=== PATIENT | male | born 1965 | race Caucasian/White ===

== ENCOUNTER → 2019-07-24 | Day surgery (SDC) | payer OTHER ==
[2019-07-21 15:04] LABS: BASOPHILS # (AUTO) 0.1 (0.0-0.1); BASOPHILS % 0.9 % (0.0-1.0); EOSINOPHILS # (AUTO) 0.5 (0.0-0.4); EOSINOPHILS % 7.3 % (0.0-6.0); HEMATOCRIT 48.8 % (38.2-49.6); HEMOGLOBIN 17.4 g/dL (14.0-18.0); LYMPHOCYTES # (AUTO) 1.3 (1.0-3.2); LYMPHOCYTES % 20.3 % (18.0-39.1); MEAN CORPUSCULAR HEMOGLOBIN 30.6 pg (28-32); MEAN CORPUSCULAR HGB CONC 35.7 g/dL (31-35); MEAN CORPUSCULAR VOLUME 85.8 fL (81-99); MONOCYTES # (AUTO) 0.6 (0.2-0.8); MONOCYTES % 9.3 % (4.4-11.3); NEUTROPHILS # (AUTO) 3.9 (2.1-6.9); NEUTROPHILS % 61.7 % (38.7-80.0); PLATELET COUNT 153 x10e3/uL (140-360); RED BLOOD COUNT 5.69 x10e6/uL (4.3-5.7); RED CELL DISTRIBUTION WIDTH 13.1 % (11.7-14.4)
[2019-07-21 15:18] LABS: ANION GAP 12.4 mmol/L (8-16); BLOOD UREA NITROGEN 18 mg/dL (7-26); BUN/CREATININE RATIO 15 (6-25); CARBON DIOXIDE 27 mmol/L (22-29); CHLORIDE 104 mmol/L (98-107); CREATININE, SERUM 1.22 mg/dL (0.72-1.25); EST GLOMERULAR FILTRATION RATE > 60 ML/MIN (60-); GLUCOSE 99 mg/dL (74-118); POTASSIUM 3.4 mmol/L (3.5-5.1); SODIUM 140 mmol/L (136-145)
[~2019-07-24] MED LIST: BUPIVACAINE 0.25%/EPI 30ML SDV INJ ONE; DEXAMETHASONE SOD PHOS INJ 4 MG/ML VIAL ONE; DEXILANT60 MG PO; FENTANYL CITRATE/PF 100MCG/2 ML INJ ONE; KETOROLAC TROMETHAMINE 30 MG/ML VIAL ONE; LIDOCAINE HCL 2% LOCAL INJ 5 ML SDV VIAL INJ ONE; MIDAZOLAM HCL 2 MG/2 ML VIAL ONE; MILK THISTLE140 M1 PO; MULTI-VITAMIN1 EACH PO; ONDANSETRON HCL INJ 2MG/ML 2ML 2 MG/ML VIAL ONE; PROPOFOL IV EMULSION 10 MG/ML 20 ML VIAL ONE; SEVOFLURANE INHAL SOLN 250 ML PEN BTL ONE; VIT B COMPLEX PO; VIT E PO
--- NOTE | 2019-07-24 09:26 | Diagnostic Imaging Report ---
EXAMINATION: CHEST 2 VIEWS INDICATION: Pre-operative COMPARISON: None FINDINGS: LINES/TUBES:None LUNGS:The lungs are well-inflated. Mild subsegmental atelectasis at the left lung base. No focal consolidation or pulmonary edema to PLEURA:No pleural effusion or pneumothorax. MEDIASTINUM:The cardiomediastinal silhouette appears normal in size and shape. BONES/SOFT TISSUES:No acute osseous injury. ABDOMEN:No free air under the diaphragm. IMPRESSION: Mild subsegmental atelectasis at the left lung base. No focal pneumonia or pulmonary edema. Signed by: Ildefonso Tolbert MD on 07/24/2019 9:22 AM
[2019-07-24 12:10] VITALS: BP 130/81
--- NOTE | 2019-07-24 17:40 | Operative Report ---
DATE OF PROCEDURE: 07/24/2019 SURGEON: Dudley Stein MD PREOPERATIVE DIAGNOSIS: Incarcerated ventral hernia. POSTOPERATIVE DIAGNOSIS: Incarcerated ventral hernia. OPERATION PERFORMED: Repair of incarcerated ventral hernia with mesh. ANESTHESIA: General. COMPLICATIONS: None. ESTIMATED BLOOD LOSS: With the patient lying in bed in supine position under good general anesthesia, the abdomen was prepped with Betadine solution and draped in the usual manner. A lower abdominal transverse incision was made under the umbilicus and carried down through the subcutaneous tissue down to the fascia, immediately a hernia sac was encountered. The fascia was then dissected all the way around the defect and all the way around the umbilicus. The umbilicus was then detached and the hernia sac was then opened and the incarcerated omentum was then reduced back to the intraabdominal cavity. After this was done, examination revealed there was a 2nd smaller hole above the large ventral defect and this was then closed primarily with interrupted sutures of 0 Ethibond. A Ventralex patch was then introduced through the hernia defect and deployed to make sure that it covered both defects without any problems and after this was done, the mesh was then anchored to the fascia with interrupted sutures of 0 Ethibond closing the defect at the same time. This gave us a satisfactory closure without any tension. The whole area was thoroughly irrigated. Perfect hemostasis was ascertained. The fascia was then infiltrated with 0.25% Marcaine solution. The umbilicus was then tacked back down to the midline with 3-0 Vicryl. The subcutaneous tissue was approximated with 3-0 Vicryl and the skin was closed with interrupted vertical mattress sutures of 3-0 nylon. A dressing was applied. The sponge, lap, and needle count was correct. The patient tolerated the procedure well and returned to the recovery room in stable condition. Dudley Stein MD JLR/MODL /[id number]
== END | disposition home or self-care (01) ==
LOC: OR 08:17
PROVIDERS: ATTEND Surgery
DX: K43.6 Other and unspecified ventral hernia with obstruction, without gangrene (principal); M10.9 Gout, unspecified; K21.9 Gastro-esophageal reflux disease without esophagitis; Z88.0 Allergy status to penicillin; Z01.810 Encounter for preprocedural cardiovascular examination; Z01.812 Encounter for preprocedural laboratory examination
CPT/HCPCS: 36415; 49561; 49568; 71046; 80048; 85025; 93005; C1781; J1100; J1885; J2001; J2250; J2405; J2704; J3010